=== PATIENT | male | born 1940 | race Caucasian/White ===

== ENCOUNTER → 2020-01-25 08:43 | Outpatient (BNVA) | payer MEDICARE, SELFPAY | PROVIDERS: Family Provider Family Medicine; PCP Family Medicine; Visit Provider Nurse Practitioner Family | DX: Z00.00 Encounter for general adult medical examination without abnormal findings (principal); Z13.6 Encounter for screening for cardiovascular disorders; Z13.29 Encounter for screening for other suspected endocrine disorder; Z68.22 Body mass index [BMI] 22.0-22.9, adult; Z13.31 Encounter for screening for depression | CPT/HCPCS: 80053; 80061; 84439; 84443 ==

== ENCOUNTER 2020-01-26 11:51 | Outpatient (CLI) | payer MEDICARE, SELFPAY ==
--- NOTE | 2020-01-26 13:08 | XR_ITS ---
WS: [id number] Lumbar spine with flexion, extension, and neutral lateral, 01/26/2020 Clinical Data: lumbar pain Comparison: Lateral lumbar spine, 09/22/2010, lumbar spine, 11/21/2018. Findings: No compression fractures are seen. There is degenerative disc narrowing at L2-L3, L4-L5 and L5-L6. Th ere is retrolisthesis of L3 on L4 of 0.7 cm and also at L4-L5. Anterior osteoarthritic change is prom inent from L2 through L5. The retrolisthesis does not change on flexion or extension. There is limita tion of motion on flexion and extension similar to the previous study. XR/XR lumbar spine f/e only [id number] Impression: 1. Degenerative disc narrowing at L2-L3, L4-L5 and L5-L6. 2. Retrolisthesis of L3 on L4 and also at L4 and L5 is 0.7 cm which does not ch sebastian on flexion or extension 3. Limitation of motion on flexion and extension. 4. Anterior osteoarthritic changes especially from L2 through L5. 5. 6 lumbar vertebral bodies.
--- NOTE | 2020-01-26 16:00 | MR_ITS ---
WS: [id number] MRI LUMBAR SPINE NONCONTRAST HISTORY: lumbar pain COMPARISON: 12/01/2018 and 05/11/2019 TECHNIQUE: Sagittal and axial multisequence imaging is submitted. Same numbering pattern will be utilized today. 5 lumbar type vertebral bodies and S1 is lumbarized al so. Posterior retropulsion of L2-L4 by 3 to 4 mm. Similar to the prior studies. No marrow edema or fractu re. There is mild disc desiccation throughout the lumbar spine with endplate osteophytes at all levels. M ild LEFT convex curvature the lumbar spine. Conus terminates normally at L1. L1-L2: Mild annular disc bulging without stenosis. L2-L3: Mild annular disc bulging and osteophytic ridging. There is very slight narrowing of the subar ticular recesses. No significant stenosis. L3-L4: Mild annular disc bulging and osteophytic ridging. There is a very shallow central disc protru agus. Fluid in the facet joints bilaterally. Mild bilateral subarticular recess stenosis with mild bi lateral foraminal stenosis. L4-L5: Diffuse annular disc bulging with facet and ligamentum flavum arthropathy. Moderate subarticul ar recess and bilateral foraminal stenosis. Mild central stenosis. L5-S1: Diffuse annular disc bulging and osteophytic ridging. Marked facet joint arthropathy and ligam entum flavum arthropathy. Severe bilateral subarticular recess stenosis with moderate central and sherie ateral foraminal stenosis. S1-S2: Rudimentary disc with no stenosis. Atherosclerosis of aorta. MR/MR lumbar spine wo con* [id number] IMPRESSION: 1. Lumbarization of S1. 2. Severe bilateral subarticular recess stenosis with moderate central and sherie ateral foraminal stenosis at L5-S1. Very minimal progression of disease since t he prior study. 3. Moderate bilateral subarticular recess and foraminal stenosis at L4-5 with mild central stenosis. 4. LEFT convex curvature of the lumbar spine. 5. Mild subarticular recess narrowing at L3-4.
== END 2020-01-26 11:52 | disposition home or self-care (01) ==
LOC: RADSHAW 11:56
PROVIDERS: Family Provider Family Medicine; PCP Family Medicine; Visit Provider Specialist
DX: M48.061 Spinal stenosis, lumbar region without neurogenic claudication (principal); M54.5 Low back pain; M47.896 Other spondylosis, lumbar region
CPT/HCPCS: 72120; 72148

== ENCOUNTER → 2020-02-02 10:01 | Outpatient (BNVA) | payer MEDICARE, SELFPAY | PROVIDERS: Family Provider Family Medicine; PCP Family Medicine; Referring Provider Specialist; Visit Provider Anesthesiology Pain Medicine | DX: M54.12 Radiculopathy, cervical region (principal); M48.061 Spinal stenosis, lumbar region without neurogenic claudication; M47.816 Spondylosis without myelopathy or radiculopathy, lumbar region; M51.36 Other intervertebral disc degeneration, lumbar region; M79.606 Pain in leg, unspecified; Z79.891 Long term (current) use of opiate analgesic | CPT/HCPCS: 99205 ==

== ENCOUNTER → 2020-04-27 12:43 | Outpatient (BNVA) | payer MEDICARE, SELFPAY | PROVIDERS: Family Provider Family Medicine; PCP Family Medicine; Visit Provider Anesthesiology Pain Medicine | DX: M51.36 Other intervertebral disc degeneration, lumbar region (principal); M47.816 Spondylosis without myelopathy or radiculopathy, lumbar region; M51.9 Unspecified thoracic, thoracolumbar and lumbosacral intervertebral disc disorder; M54.9 Dorsalgia, unspecified; M79.604 Pain in right leg; M79.605 Pain in left leg; M54.12 Radiculopathy, cervical region | CPT/HCPCS: 64483; 64484; 99213; 99214; J1040; J2001; J3490 ==

== ENCOUNTER → 2020-05-12 09:42 | Outpatient (BNVA) | payer MEDICARE, SELFPAY | PROVIDERS: Family Provider Family Medicine; PCP Family Medicine; Visit Provider Anesthesiology Pain Medicine | DX: M47.816 Spondylosis without myelopathy or radiculopathy, lumbar region (principal); M51.36 Other intervertebral disc degeneration, lumbar region; M54.9 Dorsalgia, unspecified; M79.602 Pain in left arm; M54.12 Radiculopathy, cervical region | CPT/HCPCS: 99213 ==

== ENCOUNTER → 2020-05-17 10:00 | Outpatient (BNVA) | payer MEDICARE, SELFPAY | PROVIDERS: Family Provider Family Medicine; PCP Family Medicine; Visit Provider Nurse Practitioner Family | DX: G62.9 Polyneuropathy, unspecified (principal); M25.472 Effusion, left ankle; W57.XXXA Bitten or stung by nonvenomous insect and other nonvenomous arthropods, initial encounter | CPT/HCPCS: 84550; 86000; 86618; 86666; 86757 ==

== ENCOUNTER → 2020-06-07 13:55 | Outpatient (BNVA) | payer MEDICARE, SELFPAY | PROVIDERS: Family Provider Family Medicine; PCP Family Medicine; Referring Provider Nurse Practitioner Family; Visit Provider Specialist | DX: G62.9 Polyneuropathy, unspecified (principal); R20.0 Anesthesia of skin; R20.2 Paresthesia of skin; M79.661 Pain in right lower leg; M79.662 Pain in left lower leg | CPT/HCPCS: 95909 ==

== ENCOUNTER → 2020-07-13 09:32 | Outpatient (BNVA) | payer MEDICARE, SELFPAY | PROVIDERS: Family Provider Family Medicine; PCP Family Medicine; Referring Provider Nurse Practitioner Family; Visit Provider Licensed Practical Nurse | DX: G62.89 Other specified polyneuropathies (principal); G60.9 Hereditary and idiopathic neuropathy, unspecified | CPT/HCPCS: 82607; 82746; 83921; 84260; 84443; 85651; 86140; 86431; 99213 ==

== ENCOUNTER → 2020-08-15 14:08 | Outpatient (BNVA) | payer MEDICARE, SELFPAY | PROVIDERS: Family Provider Family Medicine; PCP Family Medicine; Visit Provider Licensed Practical Nurse | DX: I10 Essential (primary) hypertension (principal); Z68.22 Body mass index [BMI] 22.0-22.9, adult; R03.0 Elevated blood-pressure reading, without diagnosis of hypertension | CPT/HCPCS: 80053; 80061; 99213 ==

== ENCOUNTER → 2020-11-03 10:46 | Outpatient (BNVA) | payer MEDICARE, SELFPAY | PROVIDERS: Family Provider Family Medicine; PCP Family Medicine; Visit Provider Specialist | DX: G62.9 Polyneuropathy, unspecified (principal); M48.062 Spinal stenosis, lumbar region with neurogenic claudication; G62.89 Other specified polyneuropathies; Z87.891 Personal history of nicotine dependence | CPT/HCPCS: 99214 ==

== ENCOUNTER → 2021-03-21 10:32 | Outpatient (BNVA) | payer MEDICARE, SELFPAY | PROVIDERS: Family Provider Family Medicine; PCP Family Medicine; Visit Provider Specialist | DX: G62.89 Other specified polyneuropathies (principal); R60.0 Localized edema; M51.36 Other intervertebral disc degeneration, lumbar region; M48.062 Spinal stenosis, lumbar region with neurogenic claudication; Z87.891 Personal history of nicotine dependence | CPT/HCPCS: 99214 ==

== ENCOUNTER 2021-03-29 09:22 | Outpatient (CLI) | payer MEDICARE, SELFPAY ==
--- NOTE | 2021-03-29 10:15 | USCV_ITS ---
RebekahScotty Age: 81 Gender: M : 1940 Exam Date: 03/29/2021 10:08 Ordering Phys: Daria Jay MD Technologist: [place] [facility] [place] HISTORY: Lower extremity edema. PROCEDURES: The venous duplex Doppler examination of both lower extremities was performed in the standard fashion. FINDINGS: Normal 2-D Doppler and augmentation and compressibility throughout the lower extremity venous structures. Additional imaging through the proximal calf veins also reveals no thrombus. Limited evaluation of the greater saphenous vein is patent with no thrombus. CONCLUSIONS No DVT bilateral lower extremities. Dr. Luisa Connell DO (Electronically Signed) Final Date: 29 Mar 2021 12:13 S
[2021-03-29 11:14] LABS: Alanine Aminotransferase 14 U/L (0-41); Albumin Level 4.3 g/dL (3.5-5.2); Alkaline Phosphatase 53 IU/L (40-130); Anion Gap 9.1 (5-19); Aspartate Amino Transferase 17 U/L (0-40); Blood Urea Nitrogen 18 mg/dL (8-23); Carbon Dioxide 31 mmol/L (22-29); Chloride 104 mmol/L (98-107); Globulin 2.8 g/dL (1.3-4.6); Glucose 101 mg/dL (65-115); Osmolality Calculated 292 mOsm/kg (285-295); Potassium 4.1 mmol/L (3.5-5.1); Sodium 140 mmol/L (136-145); Thyroid Stimulating Hormone 1.82 uIU/mL (0.27-4.20); Total Bilirubin 0.6 mg/dL (0.15-1.2); Total Protein 7.1 g/dL (6.6-8.7)
== END 2021-03-29 09:23 | disposition home or self-care (01) ==
PROVIDERS: PCP Family Medicine; Visit Provider Specialist
DX: R60.0 Localized edema (principal); G62.89 Other specified polyneuropathies; G62.9 Polyneuropathy, unspecified; R20.0 Anesthesia of skin; R20.2 Paresthesia of skin
CPT/HCPCS: 36415; 80053; 83520; 84443; 85025; 93970

== ENCOUNTER → 2021-03-30 10:37 | Outpatient (BNVA) | payer MEDICARE, SELFPAY | PROVIDERS: PCP Family Medicine; Referring Provider Specialist; Visit Provider Anesthesiology Pain Medicine | DX: M54.9 Dorsalgia, unspecified (principal); M47.816 Spondylosis without myelopathy or radiculopathy, lumbar region; M51.36 Other intervertebral disc degeneration, lumbar region; M54.12 Radiculopathy, cervical region; G62.89 Other specified polyneuropathies | CPT/HCPCS: 99214 ==

== ENCOUNTER 2021-03-30 12:59 | Outpatient (CLI) | payer MEDICARE, SELFPAY ==
[2021-03-30 14:02] LABS: Basophils # 0.1 10^3/uL (0.0-0.1); Basophils % 0.7 %; Eosinophils # 0.1 10^3/uL (0.0-0.8); Eosinophils % 1.5 %; Hematocrit 46.7 % (42.0-52.0); Hemoglobin 14.9 g/dL (11.7-16.6); Lymphocytes # 1.4 10^3/uL (0.8-4.8); Lymphocytes % 20.2 %; Mean Corpuscular HGB Conc 31.9 g/dL (30.0-36.0); Mean Corpuscular Hemoglobin 31.2 pg (28.0-34.0); Mean Corpuscular Volume 97.9 fL (80-94); Mean Platelet Volume 12.1 fL (7.4-10.4); Monocytes # 0.5 10^3/uL (0.2-0.9); Monocytes % 7.9 %; Neutrophils # 4.75 10^3/uL (1.8-7.7); Neutrophils % 69.6 %; Nucleated Red Blood Cells % 0 %; Platelet Count 125 10^3/cmm (130-400); Red Blood Count 4.77 10^6/uL (4.1-5.3); Red Cell Distribution Width 12.6 % (12.1-15.1); White Blood Count 6.8 10^3/uL (4.0-10.0)
[2021-03-30 14:54] LABS: Vitamin B12 1501 pg/mL (232-1245)
[2021-03-30 15:31] LABS: Slide Review Slide Review Perform
== END 2021-03-30 13:00 | disposition home or self-care (01) ==
PROVIDERS: Licensed Practical Nurse; PCP Family Medicine; Visit Provider Specialist
DX: G62.9 Polyneuropathy, unspecified (principal); G62.89 Other specified polyneuropathies
CPT/HCPCS: 36415; 82607; 85025

== ENCOUNTER → 2021-06-12 16:17 | Outpatient (BNVA) | payer MEDICARE, SELFPAY | PROVIDERS: PCP Family Medicine; Visit Provider Nurse Practitioner Family | DX: E78.5 Hyperlipidemia, unspecified (principal) | CPT/HCPCS: 80061 ==

== ENCOUNTER → 2021-09-19 10:28 | Outpatient (BNVA) | payer MEDICARE, SELFPAY | PROVIDERS: PCP Family Medicine; Visit Provider Specialist | DX: G62.89 Other specified polyneuropathies (principal); R60.0 Localized edema; M51.36 Other intervertebral disc degeneration, lumbar region; M48.062 Spinal stenosis, lumbar region with neurogenic claudication; Z87.891 Personal history of nicotine dependence | CPT/HCPCS: 99213 ==

== ENCOUNTER 2022-05-16 06:00 | Outpatient (RCR) | payer MEDICARE, SELFPAY | END 2022-05-17 23:59 | disposition home or self-care (01) | LOC: GPT 06:00 | PROVIDERS: PCP Family Medicine; Referring Provider Nurse Practitioner Family; Visit Provider Nurse Practitioner Family | DX: M54.59 Other low back pain (principal); M54.17 Radiculopathy, lumbosacral region; M43.8X6 Other specified deforming dorsopathies, lumbar region | CPT/HCPCS: 97110; 97162 ==

== ENCOUNTER 2022-05-18 06:00 | Outpatient (RCR) | payer MEDICARE, SELFPAY | END 2022-06-17 23:59 | disposition home or self-care (01) | LOC: GPT 06:00 | PROVIDERS: PCP Family Medicine; Referring Provider Nurse Practitioner Family; Visit Provider Nurse Practitioner Family | DX: M51.36 Other intervertebral disc degeneration, lumbar region (principal) | CPT/HCPCS: 97110; 97112; 97140; 97164 ==

== ENCOUNTER → 2022-05-30 10:11 | Outpatient (BNVA) | payer MEDICARE, SELFPAY | PROVIDERS: PCP Family Medicine; Visit Provider Specialist | DX: G62.89 Other specified polyneuropathies (principal); M54.12 Radiculopathy, cervical region; M48.062 Spinal stenosis, lumbar region with neurogenic claudication | CPT/HCPCS: 99214 ==

== ENCOUNTER 2022-06-18 06:00 | Outpatient (RCR) | payer MEDICARE, SELFPAY | END 2022-06-28 23:59 | disposition home or self-care (01) | LOC: GPT 06:00 | PROVIDERS: PCP Family Medicine; Referring Provider Nurse Practitioner Family; Visit Provider Nurse Practitioner Family | DX: M51.36 Other intervertebral disc degeneration, lumbar region (principal) | CPT/HCPCS: 97110; 97112; 97140 ==

== ENCOUNTER → 2022-07-12 09:01 | Outpatient (BNVA) | payer MEDICARE, SELFPAY | PROVIDERS: PCP Family Medicine; Visit Provider Nurse Practitioner Family | DX: E55.9 Vitamin D deficiency, unspecified (principal); E78.5 Hyperlipidemia, unspecified; I10 Essential (primary) hypertension; E53.8 Deficiency of other specified B group vitamins | CPT/HCPCS: 80053; 80061; 82306; 82607; 84443 ==

== ENCOUNTER → 2022-10-22 10:48 | Outpatient (BNVA) | payer MEDICARE, SELFPAY | PROVIDERS: PCP Family Medicine; Referring Provider Surgery; Visit Provider Anesthesiology Pain Medicine | DX: G89.29 Other chronic pain (principal); M47.816 Spondylosis without myelopathy or radiculopathy, lumbar region; M51.36 Other intervertebral disc degeneration, lumbar region; M54.12 Radiculopathy, cervical region; M79.606 Pain in leg, unspecified; G62.89 Other specified polyneuropathies; Z87.891 Personal history of nicotine dependence | CPT/HCPCS: 99214 ==

== ENCOUNTER → 2022-11-07 12:49 | Outpatient (BNVA) | payer MEDICARE, SELFPAY | PROVIDERS: PCP Family Medicine; Visit Provider Anesthesiology Pain Medicine | DX: M47.816 Spondylosis without myelopathy or radiculopathy, lumbar region (principal) | CPT/HCPCS: 64635; 64636; J1030 ==

== ENCOUNTER → 2022-11-28 10:19 | Outpatient (BNVA) | payer MEDICARE, SELFPAY | PROVIDERS: PCP Family Medicine; Visit Provider Anesthesiology Pain Medicine | DX: G89.29 Other chronic pain (principal); M47.816 Spondylosis without myelopathy or radiculopathy, lumbar region; M51.36 Other intervertebral disc degeneration, lumbar region; M54.12 Radiculopathy, cervical region; M79.606 Pain in leg, unspecified; G62.89 Other specified polyneuropathies | CPT/HCPCS: 99214 ==

== ENCOUNTER → 2022-12-24 13:32 | Outpatient (BNVA) | payer MEDICARE, SELFPAY | PROVIDERS: PCP Family Medicine; Visit Provider Anesthesiology Pain Medicine | DX: G89.29 Other chronic pain (principal); M47.812 Spondylosis without myelopathy or radiculopathy, cervical region | CPT/HCPCS: 64490; 64491; 64492; J3490 ==

== ENCOUNTER → 2023-01-08 10:25 | Outpatient (BNVA) | payer MEDICARE, SELFPAY | PROVIDERS: PCP Family Medicine; Visit Provider Anesthesiology Pain Medicine | DX: G89.29 Other chronic pain (principal); M54.12 Radiculopathy, cervical region; M47.816 Spondylosis without myelopathy or radiculopathy, lumbar region; M51.36 Other intervertebral disc degeneration, lumbar region; M79.606 Pain in leg, unspecified; G62.89 Other specified polyneuropathies | CPT/HCPCS: 99214 ==

== ENCOUNTER → 2023-05-28 10:20 | Outpatient (BNVA) | payer MEDICARE, SELFPAY | PROVIDERS: PCP Family Medicine; Visit Provider Specialist | DX: G62.89 Other specified polyneuropathies (principal); M43.16 Spondylolisthesis, lumbar region | CPT/HCPCS: 99213 ==

== ENCOUNTER → 2023-07-12 16:13 | Outpatient (BNVA) | payer MEDICARE, SELFPAY | PROVIDERS: PCP Family Medicine; Visit Provider Nurse Practitioner Family | DX: I10 Essential (primary) hypertension (principal); E55.9 Vitamin D deficiency, unspecified | CPT/HCPCS: 80053; 80061; 84443; 85025 ==